=== PATIENT | female | born 1955 | race Hispanic/Latino ===

== ENCOUNTER 2023-04-08 12:54 | Outpatient (RCR) | payer MEDICARE | END 2023-04-29 | LOC: PT 12:54 | PROVIDERS: ATTEND Specialist | DX: S83.91XA Sprain of unspecified site of right knee, initial encounter (principal) ==

== ENCOUNTER 2023-05-02 07:18 | Outpatient (RCR) | payer MEDICARE | END 2023-05-29 | LOC: PT 07:18 | PROVIDERS: ATTEND Specialist | DX: S83.91XA Sprain of unspecified site of right knee, initial encounter (principal) ==